=== PATIENT | female | born 1975 | race Caucasian/White ===

== ENCOUNTER 2023-05-02 11:00 | Inpatient (IN) | payer OTHER ==
[~2023-05-02] VITALS: Ht 162.6 cm; Wt 92.2 kg
[2023-05-02 12:09] LABS: Basophils # (auto) 0 10 ^3/uL (0-0.2); Basophils % (auto) 0.2 % (0.0-2.0); Eosinophils # (auto) 0.1 10 ^3/uL (0-0.8); Eosinophils % (auto) 0.8 % (0.0-7.0); Hematocrit 42.8 % (36.0-46.0); Hemoglobin 14.4 g/dL (12.2-16.2); Lymphocytes # (auto) 1.7 10 ^3/uL (0.4-5.4); Lymphocytes % (auto) 18.6 % (10.0-50.0); Mean Corpuscular Hemoglobin 30.3 pg (28.0-32.0); Mean Corpuscular Hgb Conc. 33.5 g/dL (32.0-36.0); Mean Corpuscular Volume 90.3 fL (80.0-100.0); Monocytes # (auto) 0.6 10 ^3/uL (0-1.3); Monocytes % (auto) 6.4 % (0.0-12.0); Neutrophils # (auto) 6.6 10 ^3/uL (1.6-8.6); Nucleated Red Blood Cells % 0.2 %; Red Blood Cells 4.75 10^6/uL (4.0-5.20); Red Cell Distribution Width 13.3 % (11.8-14.3); White Blood Cell 8.9 10^3/uL (4.4-10.8)
[2023-05-02 12:22] LABS: Alanine Aminotransferase 301 U/L (7-40); Albumin 4.4 g/dL (3.2-4.8); Alkaline Phosphatase 126 U/L (46-116); Anion Gap 7 (5-15); Aspartate Aminotransferase 286 U/L (13-40); BUN/Creatinine Ratio 9.2 (10.0-20.0); Blood Urea Nitrogen 6 mg/dL (9-23); Calcium 9.8 mg/dL (8.5-10.1); Carbon Dioxide 27 mmol/L (20-30); Chloride 104 mmol/L (98-107); Glucose 90 mg/dL (74-106); Potassium 4.5 mmol/L (3.5-5.1); Sodium 138 mmol/L (136-145)
[2023-05-02 12:23] LABS: Bilirubin, Total 0.8 mg/dL (0.2-1.0); Total Protein 7.1 g/dL (5.7-8.2)
[2023-05-02 12:34] LABS: Lactic Acid w/Reflex 2.3 mmol/L (0.4-2.0)
[2023-05-02] MEDS ORDERED: NITROGLYCERIN 0.4 MG SL TAB SL PRN (18:30)
[2023-05-02 19:30] VITALS: PULSE 91; RESP 19; O2SAT 99
[2023-05-02 19:58] VITALS: BP 124/86; PULSE 108; RESP 20; O2SAT 98
[2023-05-02] MEDS: SODIUM CHLORIDE 0.9% 1,000 ML IV ONE (20:22)
[2023-05-02] MEDS: IOHEXOL 350 MG/ML 100ML IJ ONE (20:23)
[2023-05-02] MEDS: ASPirin 81 mg TAB PO SCH (20:28)
[2023-05-02] MEDS: ENOXAPARIN SOD 40 MG/0.4 ML SYRINGE SC SCH (20:46)
[2023-05-02] MEDS: ALBUTEROL SULF 2.5 MG/0.5ML(0.5%) NEB SOLN NEB SCH (22:11)
[2023-05-02 22:12] VITALS: PULSE 82; RESP 20; O2SAT 98
[2023-05-02] MEDS: BUDESONIDE (INHALATION) 0.5 MG/2 ML NEB NEB SCH (22:12)
[2023-05-02 22:20] VITALS: PULSE 84; RESP 20; O2SAT 100
[2023-05-02] MEDS: MORPHINE SULFATE INJ 2 MG/ml SYRG IV PRN (22:43)
[2023-05-02 23:18] LABS: Amphetamine Screen, Urine Neg (NEGATIVE); Barbiturate Scree,Urine Neg (NEGATIVE); Benzodiazephine Screen, Urine Neg (NEGATIVE); Cannabinoid Screen, Urine Neg (NEGATIVE); Cocaine Screen, Urine Neg (NEGATIVE); Opiate Scree,Urine Neg (NEGATIVE); Phencyclidine Screen, Urine Neg (NEGATIVE)
[2023-05-02 23:34] LABS: Urine Bacteria NONE SEEN /hpf (None Seen); Urine Blood Negative /uL (Negative); Urine Clarity Clear (Clear); Urine Color Yellow (Yellow); Urine Protein, UAD TRACE (Negative); Urine Specific Gravity 1.026 (1.001-1.035); Urine Urobilinogen >12.0 mg/dL (Negative); Urine WBC <1 /hpf (0 - 5)
[2023-05-03] VITALS (12 sets, daily range): BP systolic 114–126; BP diastolic 69–76; PULSE 67–101; RESP 16–18; TEMP 97.9–98.5; O2SAT 96–99
[2023-05-03] MEDS: FLUoxetine HCL 20 MG CAP PO ONE (07:22)
[2023-05-03] MEDS: lamoTRIgine 100 MG TAB PO ONE (07:22)
[2023-05-03 08:19] LABS: Basophils # (auto) 0 10 ^3/uL (0-0.2); Basophils % (auto) 0.4 % (0.0-2.0); Eosinophils # (auto) 0.1 10 ^3/uL (0-0.8); Eosinophils % (auto) 1.6 % (0.0-7.0); Hematocrit 39.9 % (36.0-46.0); Hemoglobin 13.3 g/dL (12.2-16.2); Lymphocytes # (auto) 1.3 10 ^3/uL (0.4-5.4); Mean Corpuscular Hemoglobin 29.4 pg (28.0-32.0); Mean Corpuscular Hgb Conc. 33.3 g/dL (32.0-36.0); Mean Corpuscular Volume 88.2 fL (80.0-100.0); Monocytes # (auto) 0.4 10 ^3/uL (0-1.3); Monocytes % (auto) 8.6 % (0.0-12.0); Neutrophils # (auto) 2.8 10 ^3/uL (1.6-8.6); Neutrophils % (auto) 60.4 % (37.0-80.0); Nucleated Red Blood Cells % 0.1 %; Red Blood Cells 4.52 10^6/uL (4.0-5.20); Red Cell Distribution Width 13.6 % (11.8-14.3); White Blood Cell 4.7 10^3/uL (4.4-10.8)
[2023-05-03 08:26] LABS: Chloride 107 mmol/L (98-107); Potassium 4.2 mmol/L (3.5-5.1); Sodium 137 mmol/L (136-145)
[2023-05-03 08:27] LABS: Anion Gap 6 (5-15); Carbon Dioxide 24 mmol/L (20-30)
[2023-05-03 08:32] LABS: Glucose 87 mg/dL (74-106)
[2023-05-03 08:33] LABS: BUN/Creatinine Ratio 7.8 (10.0-20.0); Blood Urea Nitrogen < 5 mg/dL (9-23)
[2023-05-03] MEDS: ADENOSINE 76 MG in GIVE UN-DILUTED 0 ML IV ONE (11:11)
[2023-05-03] MEDS: IBUPROFEN 800 MG TAB PO PRN (18:03)
[2023-05-04] VITALS (7 sets, daily range): BP systolic 117–130; BP diastolic 72–88; PULSE 68–110; RESP 16–20; TEMP 36.6; O2SAT 95–100
[2023-05-04] MEDS: FLUoxetine HCL 20 MG CAP PO SCH (05:07)
[2023-05-04] MEDS ORDERED: lamoTRIgine 100 MG TAB PO SCH (22:00)
== END 2023-05-04 17:40 | DRG 313 ==
LOC: ER 11:00 → EDBD 11:00 → EEVIPCON 11:00 → UNDOADMIN 18:29 → TELE 18:29 → TELE-WESTW 05-03 10:27
PROVIDERS: ADMIT Internal Medicine; ATTEND Internal Medicine
PROC: C23GYZZ Positron Emission Tomographic (PET) Imaging of Myocardium using Other Radionuclide (ICD-10-PCS; principal; 2023-05-03)
DX: R07.89 Other chest pain (principal); J45.909 Unspecified asthma, uncomplicated; F41.9 Anxiety disorder, unspecified; F43.10 Post-traumatic stress disorder, unspecified; K21.9 Gastro-esophageal reflux disease without esophagitis; I10 Essential (primary) hypertension; E78.5 Hyperlipidemia, unspecified; R91.1 Solitary pulmonary nodule; F31.9 Bipolar disorder, unspecified; F17.210 Nicotine dependence, cigarettes, uncomplicated; F15.10 Other stimulant abuse, uncomplicated; B19.20 Unspecified viral hepatitis C without hepatic coma; F11.90 Opioid use, unspecified, uncomplicated; Z88.6 Allergy status to analgesic agent; Z82.49 Family history of ischemic heart disease and other diseases of the circulatory system
CPT/HCPCS: 36415; 71045; 71275; 78452; 80048; 80053; 80307; 81001; 83605; 83880; 84484; 84702; 85025; 85379; 93005; 93017; 94640; G0378; J0153